=== PATIENT | male | born 1995 | race Caucasian/White ===

== ENCOUNTER 2016-08-06 12:44 | Emergency (ER) | payer BC ==
[~2016-08-06] VITALS: Ht 185.4 cm; Wt 93.9 kg
[2016-08-06 13:06] VITALS: BP 119/74
[2016-08-06] MEDS ORDERED: KETOROLAC TROMETH 60MG/2ML VIAL IM ONE (13:15)
== END 2016-08-06 14:12 | disposition home or self-care (01) ==
LOC: ER 12:49
DX: S93.402A Sprain of unspecified ligament of left ankle, initial encounter (principal); W17.89XA Other fall from one level to another, initial encounter; Y93.89 Activity, other specified; Y92.89 Other specified places as the place of occurrence of the external cause; Y99.8 Other external cause status
CPT/HCPCS: 29515; 73610; 96372; 99284; J1885